=== PATIENT | female | born 1950 | race Caucasian/White ===

== ENCOUNTER 2021-09-29 22:27 | Emergency (ER) | payer OTHER, MEDICARE ==
[2021-09-29] MEDS ORDERED: Lidocaine 1%/Epinephrine 1:100K 10 ML VIAL ONE (22:56)
[2021-09-29] MEDS ORDERED: Clindamycin 150 MG CAP ONE (23:24)
== END 2021-09-30 00:02 | disposition home or self-care (01) ==
LOC: MADERS 22:27
DX: S51.831A Puncture wound without foreign body of right forearm, initial encounter (principal); S61.511A Laceration without foreign body of right wrist, initial encounter; W54.0XXA Bitten by dog, initial encounter; Z79.82 Long term (current) use of aspirin; Z79.899 Other long term (current) drug therapy
CPT/HCPCS: 12002

== ENCOUNTER 2021-10-09 09:11 | Emergency (ER) | payer MEDICARE | END 2021-10-09 09:27 | disposition home or self-care (01) | LOC: MADERS 09:11 | DX: S61.411D Laceration without foreign body of right hand, subsequent encounter (principal); E03.9 Hypothyroidism, unspecified; E78.5 Hyperlipidemia, unspecified; W54.0XXD Bitten by dog, subsequent encounter ==

== ENCOUNTER 2024-11-25 09:14 | Outpatient (CLI) | payer MEDICARE ==
[~2024-11-25 09:14] MED LIST: Iopamidol 370 76% 100 ML VIAL ONE
[2024-11-25 10:08] LABS: Calc. Creatinine Clearance 0.0 mL/min (70-130)
== END 2024-11-25 09:15 | disposition home or self-care (01) ==
LOC: MADRAD 09:14
PROVIDERS: ATTEND Family Medicine
DX: R31.0 Gross hematuria (principal); R94.4 Abnormal results of kidney function studies
CPT/HCPCS: 36415; 74178; 82565; Q9967